=== PATIENT | female | born 1935 | race Caucasian/White ===

== ENCOUNTER 2021-07-14 12:01 | Outpatient (REF) | payer MEDICARE, SELFPAY ==
--- NOTE | ~2021-07-14 | XR_ITS ---
EXAMINATION: XR SHOULDER, LEFT CLINICAL INFORMATION: Fall with pain COMPARISON: None TECHNIQUE: Three views of the left shoulder. FINDINGS: There is no evidence of acute fracture or dislocation of the left shoulder. There is a region of diminished density within the left humeral head with some sclerosis around it with the appearance of a benign process which may be related to pit erosion. There is some mild spurring glenohumeral joint. There is no widening of the coracoclavicular space. XR/XR shoulder LT min 2V IMPRESSION: Degenerative change without evidence of acute fracture, dislocation, or calcific tendinitis.
== END 2021-07-14 12:02 | disposition home or self-care (01) ==
LOC: HO.HMGCX 12:01
PROVIDERS: Visit Provider Physician Assistant
DX: M25.512 Pain in left shoulder (principal); W19.XXXA Unspecified fall, initial encounter
CPT/HCPCS: 73030

== ENCOUNTER 2022-05-09 15:08 | Outpatient (REF) | payer MEDICARE, SELFPAY ==
[2022-05-09 16:31] LABS: Hemoglobin 14.3 g/dl (12.0-16.0); Mean Corpuscular HGB Conc 33.3 g/dl (31.0-35.0); Mean Corpuscular Volume 90.1 fL (80.0-98.0); Mean Platelet Volume 11.7 fL (9.4-12.3); Platelet Count 235 X10*3/uL (160-400); Red Blood Count 4.77 X10*6/uL (4.20-5.50); Red Cell Distribution Width 13.8 % (11.0-16.0); White Blood Count 10.3 X10*3/uL (4.8-10.8)
[2022-05-09 17:31] LABS: Alanine Aminotransferase 16 U/L (0-31); Albumin Level 4.1 g/dL (3.5-5.0); Alkaline Phosphatase 74 U/L (39-117); Anion Gap 15 (12-20); Aspartate Amino Transferase 23 U/L (5-31); Bilirubin Direct 0.3 mg/dL (0.0-0.5); Bilirubin Total 0.9 mg/dL (0.0-1.0); Blood Urea Nitrogen 12 mg/dL (9-16); Calcium 9.4 mg/dL (8.4-10.2); Carbon Dioxide 29 mmol/L (22-29); Chloride 101 mmol/L (96-108); Estimated Glomerular Filt Rate > 60; Glucose Random 92 mg/dL (60-115); Sodium 141 mmol/L (135-145); Total Protein 6.5 g/dL (6.5-8.0)
[2022-05-09 17:47] LABS: Thyroid Stimulating Hormone 3.42 uIU/mL (0.32-4.0)
== END 2022-05-09 15:09 | disposition home or self-care (01) ==
LOC: HO.HMGCLDS 15:08
PROVIDERS: Visit Provider Internal Medicine
DX: R53.83 Other fatigue (principal)
CPT/HCPCS: 36415; 80048; 80076; 84443; 85027

== ENCOUNTER 2023-03-07 12:36 | Outpatient (AMB) | payer MEDICARE, SELFPAY ==
--- NOTE | 2023-03-07 13:01 | MHC.OFFWIV ---
Intake Vital Signs 03/07/23 13:02 Height 5 ft 2 in BP 136/78 Blood Pressure Location Rt brachial Position Sitting Pulse 70 Pulse Source Pulse Oximeter Temp 96.9 F Temp Source Temporal Artery Scan Pulse Oximetry (%) 98 Oxygen Delivery Method Room Air Intake Visit Reasons: EST/chest wagner (lobby masked) Intake Note: Pt is here c/o chest congestion. Patient Tobacco Use Status: Former Tobacco user Allergies acetaminophen [From Percocet] Adverse Reaction (Mild, Verified 03/07/23 13:02) vomiting oxycodone [From Percocet] Adverse Reaction (Mild, Verified 03/07/23 13:02) vomiting Do you need a note to return to daycare/school/sports/work: No HPI EST/chest wagner (lobby masked) HPI Details 88 year old female patient presents today with chest congestion and productive cough x1 week. She has a history of COPD. Has has some intermittent shortness of breath. Has been using Combivent inhaler and mucinex otc. Denies fever or chills. Denies any GI symptoms. No known exposure to sick contacts. [facility] Patient Tobacco Use Status: Former Tobacco user Review of Systems Const All systems reviewed & are unremarkable except as noted in HPI and below Physical Exam Const General: cooperative and no acute distress HEENT Head: Yes normal to inspection Ears: hearing grossly normal bilaterally General nose exam: Normal external nose present and Normal nasal mucous membranes and turbinates present Face and sinus: Yes normal facial exam Mouth: Normal oral and palatal mucosa present and moist mucous membranes Throat: Yes posterior oropharynx abnormal (mild erythema) and Yes postnasal drainage Neck Neck: Yes no lymphadenopathy Resp Effort & Inspection: normal respiratory effort, able to speak in complete sentences and Actively coughing Quality: productive Auscultation: rhonchi (otherwise clear) upper bilaterally Cardio Jugular venous distension: no JVD Palpation: normal PMI Rate: regular rate Rhythm: regular rhythm Skin General skin exam: no rashes or lesions noted Extrem General: Yes capillary refill normal and Yes no clubbing, cyanosis or edema Psych Appearance: grossly normal Mental Status: mental status grossly normal Speech and movement: Normal speech and movement present Assessment & Plan Assessment & Plan (1) Upper respiratory infection: Code(s): J06.9 - Acute upper respiratory infection, unspecified Qualifiers: URI type: unspecified URI Qualified Code(s): J06.9 - Acute upper respiratory infection, unspecified Plan: Patient had similar illness 6+ months ago and did well on azithromycin. I will rx z-pack and benzonatate. Reviewed indications, use, possible s/e of medications. Recommended rest, hydration, and she may continue with combivent inhaler and otc mucinex as needed. Advised to return to the clinic if she does not improve with time and treatment, or if symptoms worsen or new symptoms such as fever/chills, or shortness of breath occur. She verbalizes understanding and agrees to plan. Medications: New azithromycin For 250 mg dose pack: take 500 mg today (day 1), then 250 mg for 4 days (days 2-5) PO Do not take in hydroxyzine with this medication. 6 tabs 0RF J06.9 - Acute upper respiratory infection, unspecified Refilled benzonatate 100 mg PO BID PRN 14 caps 0RF cough 7 days R05.9 - Cough, unspecified Coding Level of Care Code Est Pt Level 3 (80459) Diagnoses Upper respiratory tract infection, unspecified type J06.9 URI type: unspecified URI
[2023-03-07 13:02] VITALS: BP 136/78; PULSE 70; TEMP 36.1; O2SAT 98
== END 2023-03-07 13:29 | disposition home or self-care (01) ==
PROVIDERS: PCP Internal Medicine; Visit Provider Nurse Practitioner Family
DX: J06.9 Acute upper respiratory infection, unspecified (principal)
CPT/HCPCS: 99213

== ENCOUNTER 2024-04-11 15:33 | Outpatient (AMB) | payer MEDICARE, SELFPAY ==
--- NOTE | 2024-04-11 15:59 | MHC.OFFWIV ---
Intake Vital Signs 04/11/24 16:01 Weight 88.904 kg BP 120/84 Blood Pressure Location Lt brachial Position Sitting Pulse 77 Pulse Source Pulse Oximeter Pulse Oximetry (%) 96 Oxygen Delivery Method Nasal Cannula Intake Visit Reasons: EP-neck, lt side shoulder going down the arm pain Intake Note: Patient here for left sided neck and shoulder pain that started becoming painful last night, she states she had a fall about 1 week ago and fell forward. Patient Tobacco Use Status: Former Tobacco user Allergies acetaminophen [From Percocet] Adverse Reaction (Mild, Verified 04/11/24 16:01) vomiting oxycodone [From Percocet] Adverse Reaction (Mild, Verified 04/11/24 16:01) vomiting Do you need a note to return to daycare/school/sports/work: No HPI HPI Comments History of Present Illness Details 1816 89 yo f presents 1 week sp fall ( tripped on oxygen tubing) with neck pain that radiates into L shoulder. Worse w/ movement better at rest. When she fell she did hit her head and her nose. No loc. Was not evaluated that day but was then seen by her PCP who ordered xray of nose ( no results yet per patient) Denies headache, cp, sob, nausea, vomiting, abd pain, vision changes, dizziness, weakness. took tramadol 50 mg today with improvment. PE L sided cervical paraspinous muscle ttp on exam. Full rom to b/l shoulders. No wrist drop b/l. Normal distal sensation. Normal cap refil <2 seconds. GCS-15, NIHSS-0 Hx and pe concerning for cervical radiculopathy. Less likely traumatic sublux, fractures, dislocation, ich, stroke, posterior stroke. No signs of nv compromise, cord compression or cervical myelopathy Plan- lido derm patch, low dose NSAID ( no hx of renal issues), xray. No indication for head ct at this time no focal neuro deficits. [facility] Medical History Cervical radiculopathy Social History Patient Tobacco Use Status: Former Tobacco user Review of Systems Const All systems reviewed & are unremarkable except as noted in HPI and below Physical Exam Vital Signs: Last Vital Signs Pulse 77 04/11/24 16:01 BP 120/84 04/11/24 16:01 Pulse Ox 96 04/11/24 16:01 Oxygen Delivery Method Nasal Cannula 04/11/24 16:01 vss Appearance: Alert.? Oriented X3.? No acute distress.? Head: Normocephalic, atraumatic, no step-offs or deformities Eyes: Pupils equal, round and reactive to light.? Neck: Normal inspection. + L sided cervical paraspinous muscle ttp on exam. Full rom to b/l shoulders mild disomcofort w/palpation of L shoulder. No wrist drop b/l. Normal distal sensation. Normal cap refil <2 seconds. CVS: Normal heart rate and rhythm.? Pulses normal.? Respiratory: No respiratory distress.? Breath sounds normal.? Abdomen: Soft and nontender.? Skin: Skin warm and dry.? Normal skin color.? Normal skin turgor.? Extremities: No lower extremity edema.? No calf ttp. 5/5 strength to bilateral upper and lower extremities Neuro: Oriented X 3.? No motor deficit.? No sensory deficit. CN 2-12 intact Assessment & Plan Assessment & Plan (1) Cervical radiculopathy: Code(s): M54.12 - Radiculopathy, cervical region (2) Left shoulder pain: Code(s): M25.512 - Pain in left shoulder Plan Take your medications as prescribed. If you were prescribed antibiotics today, it is important that you take your medication to their entirety, do not skip any doses, do not finish them early. Follow-up with your primary care provider this week. Return to the emergency department with new or worsening symptoms. In case of emergency call 911 Orders: Orders XR cervical spine 2V Today M54.12 - Radiculopathy, cervical region, W19.XXXA - Unspecified fall, initial encounter XR shoulder LT min 2V Today M25.512 - Pain in left shoulder Medications: New meloxicam take at night with food 7.5 mg PO DAILY 14 tabs 0RF lidocaine 4% (AsperFlex (lidocaine)) 1 patch topical DAILY PRN 15 ea 0RF pain Coding Level of Care Code Est Pt Level 3 (74367) Diagnoses Cervical radiculopathy M54.12 Left shoulder pain M25.512
[2024-04-11 16:01] VITALS: BP 120/84; PULSE 77; O2SAT 96
== END 2024-04-11 16:25 | disposition home or self-care (01) ==
PROVIDERS: PCP Internal Medicine; Visit Provider Physician Assistant
DX: M54.12 Radiculopathy, cervical region (principal); M25.512 Pain in left shoulder

== ENCOUNTER 2024-04-11 15:33 | Outpatient (REF) | payer MEDICARE, SELFPAY ==
--- NOTE | ~2024-04-11 | XR_ITS ---
EXAMINATION: XR SHOULDER, LEFT CLINICAL INFORMATION: M25.512 - Pain in left shoulder COMPARISON: 07/14/2021. TECHNIQUE: AP external rotation, Grashey, scapular Y, and axillary views of the left shoulder. FINDINGS: Normal bony mineralization. No fracture, dislocation, or suspicious bone lesion. Mild arthritis in the AC joint. Mild arthritis in the glenohumeral joint. Normal alignment. Subacromial space is preserved. Mildly downsloping lateral acromion without spurring. Remainder the bony and soft tissue structures appear normal. XR/XR shoulder LT min 2V IMPRESSION: 1. No acute findings left shoulder. 2. 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 Electronically signed by: Osbaldo Goodwin MD 04/24/2024 04:50 PM [facility]
--- NOTE | ~2024-04-11 | XR_ITS ---
EXAMINATION: XR CERVICAL SPINE CLINICAL INFORMATION: W19.XXXA - Unspecified fall, initial encounter COMPARISON: None available. TECHNIQUE: 3 views of the cervical spine were obtained. FINDINGS: Normal lordosis. Mild dextroconvex scoliosis. No compression deformity or acute fracture. No traumatic subluxation. No suspicious focal bone lesion. Atlantoaxial joint and craniocervical junction intact and aligned. There appears to be partial ankylosis of the disc spaces involving C4-C6. Severe disc space narrowing C3-4 with sclerotic endplate changes and disc vacuum phenomenon. Multilevel bilateral hypertrophic degenerative facet changes. Normal facet alignment. No prevertebral or paravertebral soft tissue abnormality. Imaged lung apices demonstrate a small nodular opacity in the right apex. Cannot exclude pulmonary nodule. XR/XR cervical spine 2V IMPRESSION: 1. No plain film evidence of acute cervical spine fracture or injury. 2. Advanced cervical spondylosis. 3. Possible lung nodule right apex. CT recommended. Electronically signed by: Osbaldo Goodwin MD 04/24/2024 04:54 PM [facility]
== END 2024-04-11 15:34 | disposition home or self-care (01) ==
LOC: HO.HMGCX 15:33
PROVIDERS: PCP Internal Medicine; Visit Provider Physician Assistant
DX: M54.12 Radiculopathy, cervical region (principal); M25.512 Pain in left shoulder; W19.XXXA Unspecified fall, initial encounter; Y93.9 Activity, unspecified; Y92.9 Unspecified place or not applicable; Y99.9 Unspecified external cause status
CPT/HCPCS: 72040; 73030; 99212

== ENCOUNTER → 2024-04-11 16:38 | Outpatient (BNV) | payer MEDICARE, SELFPAY | PROVIDERS: PCP Internal Medicine; Visit Provider Radiology Diagnostic Radiology | DX: M47.892 Other spondylosis, cervical region (principal); M19.012 Primary osteoarthritis, left shoulder | CPT/HCPCS: 72040; 73030 ==

== ENCOUNTER 2024-08-26 14:16 | Outpatient (REF) | payer MEDICARE, SELFPAY ==
--- NOTE | ~2024-08-26 | XR_ITS ---
EXAMINATION: XR CHEST CLINICAL INFORMATION: R05.9 - Cough, unspecified COMPARISON: None available. TECHNIQUE: 2 views of the chest were obtained. FINDINGS: Pulmonary reticular pattern with patchy and linear opacities in the lower hemithoraces. No gross pneumothorax. No gross pleural effusion. Cardiomediastinal silhouette size is prominent. Calcified plaque aortic arch. Multilevel thoracic and upper lumbar spondylosis. Osteopenia versus osteoporosis. XR/XR chest 2V IMPRESSION: Chronic interstitial lung disease with the mild interstitial lung edema versus acute small airway inflammatory process. Electronically signed by: Ricardo Mancuso MD 08/26/2024 03:43 PM EDT
== END 2024-08-26 14:17 | disposition home or self-care (01) ==
LOC: HO.HMGCX 14:16
PROVIDERS: PCP Internal Medicine; Visit Provider Physician Assistant
DX: J22 Unspecified acute lower respiratory infection (principal); R05.9 Cough, unspecified
CPT/HCPCS: 71046; 99202

== ENCOUNTER 2024-08-26 14:16 | Outpatient (AMB) | payer MEDICARE, SELFPAY ==
[2024-08-26 14:20] VITALS: BP 124/80; PULSE 80; TEMP 36.5; O2SAT 94; BMI 35.8
--- NOTE | 2024-08-26 14:20 | AM.OFFWIN_ITS ---
Intake Vital Signs 08/26/24 14:20 Height 5 ft 2 in Weight 196 lb BMI 35.8 BP 124/80 Blood Pressure Location Lt brachial Position Sitting Pulse 80 Pulse Source Pulse Oximeter Temp 97.7 F Temp Source Oral Pulse Oximetry (%) 94 Oxygen Delivery Method Nasal Cannula Oxygen Flow Rate 2 Intake Visit Reasons: EP cough, phlegm Patient Tobacco Use Status: Former Tobacco user Allergies acetaminophen [From Percocet] Adverse Reaction (Mild, Verified 08/26/24 14:20) vomiting oxycodone [From Percocet] Adverse Reaction (Mild, Verified 08/26/24 14:20) vomiting Do you need a note to return to daycare/school/sports/work: No HPI HPI Comments History of Present Illness Details History - The patient is an 89-year-old female w ith past med hx of COPD on 2L during the day only presenting with a worsened hacking cough and potential respiratory infection. - Symptoms started around one week ago, with persistent coughing and clear phlegm expectoration, worsening over the last few days. - The patient's cough, associated with C OPD, includes mild wheezing but remains afebrile with no severe exacerbation of baseline shortness of breath. - Denies head, ear, or sinus symptoms, w ith only occasional mild headaches unrelated to the current illness. - Current COPD management includes dayti me oxygen therapy and inhalers, with variable night use. - Obsa-ugw-[id number] treatments initially offered relief but ceased to do so recently, prompting the visit. - She lives alone with no additional ill ness exposure risk and has a history of joint replacements. 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 Posterior oropharynx erythema noted Eyes: Appearance normal, both eyes and all related structures Neck: Normal visual inspection Respiratory: slight rhonchi, dim bilaterally. Normal respiratory effort, able to speak in complete sentences, Actively coughing, no respiratory distress, not tachypneic, no tripod positioning and no use of accessory muscles Cardiovascular: Regular rate and rhythm. Normal S1 and S2 Skin: No rashes or lesions noted Neuro: Patient oriented x3 Extremities: Normal to inspection and Yes no clubbing, cyanosis or edema PFSH Medical History Cervical radiculopathy Social History Patient Tobacco Use Status: Former Tobacco user Review of Systems Const All systems reviewed & are unremarkable except as noted in HPI and below Physical Exam Vital Signs: Last Vital Signs Temp 97.7 F 08/26/24 14:20 Pulse 80 08/26/24 14:20 BP 124/80 08/26/24 14:20 Pulse Ox 94 08/26/24 14:20 Oxygen Delivery Method Nasal Cannula 08/26/24 14:20 BMI result Body Mass Index 35.8 Assessment & Plan Assessment & Plan (1) Lower respiratory infection (e.g., bronchitis, pneumonia, pneumonitis, pulmonitis): Code(s): J22 - Unspecified acute lower respiratory infection Plan: O2 slightly lower at 94% than baseline 96%, other VSS, pt well appearing lungs dim with slight rhonchi. To manage the patient?s worsening cough and sob and potential respiratory infection, prednisone will be initiated at 40 mg daily for five days to assist with airway inflammation in the context of COPD. Azithromycin will be prescribed, beginning with a higher dose on the first day followed by a maintenance dose, to address suspected bacterial components. The usage of hydroxyzine is to be withheld during this time due to interaction risks. A chest X-ray has been ordered to evaluate the possibility of pneumonia, with subsequent antibiotic therapy adjustments if needed based on radiographic findings. Medications have been directed to the chosen pharmacy, and patient instructions regarding them and the temporary modifications of the evening medication regimen have been provided. Patient was informed and verbally consented to the use of an ambient scribe for clinic note documentation during this visit Orders: Orders XR chest 2V Today R05.9 - Cough, unspecified Medications: New azithromycin For 250 mg dose pack: take 500 mg today (day 1), then 250 mg for 4 days (days 2-5) orally; 6 tabs 0RF prednisone 40 mg (2 x 20 mg) PO QAM 10 tabs 0RF Coding Level of Care Code New Pt Level 4 (32621) Diagnoses Lower respiratory infection (e.g., bronchitis, pneumonia, pneumonitis, pulmonitis) J22
== END 2024-08-26 14:47 | disposition home or self-care (01) ==
PROVIDERS: PCP Internal Medicine; Visit Provider Physician Assistant
DX: J22 Unspecified acute lower respiratory infection (principal)

== ENCOUNTER → 2024-08-26 14:49 | Outpatient (BNV) | payer MEDICARE, SELFPAY | PROVIDERS: PCP Internal Medicine; Visit Provider Radiology Diagnostic Radiology | DX: R05.9 Cough, unspecified (principal) | CPT/HCPCS: 71046 ==